=== PATIENT | male | born 1980 | race Caucasian/White ===

== ENCOUNTER 2022-05-04 08:59 | Day surgery (SDC) | payer MEDICAID ==
[~2022-05-04] VITALS: Ht 185.4 cm; Wt 163.6 kg
[2022-05-04 09:17] VITALS: BP 152/91
[2022-05-04] MEDS ORDERED: LOSA50TA64 PO (09:50)
[2022-05-04] MEDS ORDERED: CARV3.1244 (09:50)
[2022-05-04] MEDS ORDERED: METF-900 PO (09:50)
[2022-05-04] MEDS ORDERED: OMEP40CA21 PO (09:50)
[2022-05-04] MEDS ORDERED: BUME1TAB8 PO (09:50)
[2022-05-04] MEDS ORDERED: SEMA0.25 SQ (09:50)
[2022-05-04] MEDS ORDERED: KRIL1CAP PO (09:50)
[2022-05-04] MEDS ORDERED: INSU100I31 SQ (09:50)
[2022-05-04] MEDS ORDERED: MULT-1085 PO (09:51)
[2022-05-04] MEDS ORDERED: ERGO400C (09:53)
[2022-05-04] MEDS ORDERED: fentaNYL/PF 50MCG/1 ML 2ML syringe ONE ×3 (09:53→12:30)
[2022-05-04] MEDS ORDERED: MIDAZolam 1 MG/ML 5ML VIAL ONE ×2 (09:53→12:20)
[2022-05-04] MEDS ORDERED: LIDOcaine Viscous 15ml cup ONE (09:53)
[2022-05-04] MEDS ORDERED: diphenhydrAMINE 50 mg/ml inj ONE (12:11)
[2022-05-04 12:55] VITALS: BP 172/99
[2022-05-04 13:05] VITALS: BP 160/99
[2022-05-04 13:15] VITALS: BP 156/59
[2022-05-04 13:25] VITALS: BP 148/88
== END 2022-05-04 12:35 | disposition home or self-care (01) ==
LOC: GI LAB 08:59
PROVIDERS: ATTEND Internal Medicine Gastroenterology
DX: K52.9 Noninfective gastroenteritis and colitis, unspecified (principal); K57.30 Diverticulosis of large intestine without perforation or abscess without bleeding; K44.9 Diaphragmatic hernia without obstruction or gangrene; K31.7 Polyp of stomach and duodenum; K29.70 Gastritis, unspecified, without bleeding; E66.01 Morbid (severe) obesity due to excess calories
CPT/HCPCS: 43239; 43251; 45380; 99152; 99153; C1769; C1773; J1200; J2250; J3010; J7030; A4620

== ENCOUNTER 2024-02-27 10:40 | Emergency (ER) | payer MEDICAID ==
[~2024-02-27] VITALS: Ht 185.4 cm; Wt 87.5 kg
[~2024-02-27 10:40] MED LIST: BUME1TAB8 PO; CARV3.1244; ERGO400C; INSU100I31 SQ; KRIL1CAP PO; LOSA50TA64 PO; METF-900 PO; MULT-1085 PO; OMEP40CA21 PO; SEMA0.25 SQ
[2024-02-27 13:34] VITALS: BP 136/86; PULSE 80; RESP 18; TEMP 97.9; O2SAT 99
== END 2024-02-27 13:36 | disposition home or self-care (01) ==
LOC: ER 10:40
DX: R05.9 Cough, unspecified (principal); Z20.822 Contact with and (suspected) exposure to COVID-19; Z88.8 Allergy status to other drugs, medicaments and biological substances; Z79.899 Other long term (current) drug therapy; Z79.84 Long term (current) use of oral hypoglycemic drugs
CPT/HCPCS: 36415; 71045; 87502; 87503; 87811; 99284